=== PATIENT | female | born 1985 | race Caucasian/White ===

== ENCOUNTER 2019-01-26 20:08 | Emergency (ER) | payer MEDICAID ==
[~2019-01-26] VITALS: Ht 165.1 cm; Wt 65.8 kg
[2019-01-26] MEDS ORDERED: EPINEPHrine HCL 1 MG/10 ML SYRG IV ONE (20:15)
[2019-01-26] MEDS ORDERED: SODIUM BICARBONATE 8.4% INJ 50ML SYRINGE IV ONE (20:15)
[2019-01-26] MEDS ORDERED: CALCIUM CHLOR(10%) 100MG/ML 10ML SYRINGE IV ONE ×3 (20:15→20:31)
[2019-01-26] MEDS ORDERED: NOREPINEPHRINE 8 MG/250ML KIT 250 ML IV ONE (20:23)
[2019-01-26] MEDS ORDERED: SODIUM BICARBONATE 8.4% INJ 50ML SYRINGE ONE ×2 (20:30)
[2019-01-26] MEDS ORDERED: NOREPINEPHRINE 8 MG/250ML KIT 250 ML IV SCH (20:34)
[2019-01-26] MEDS ORDERED: SODIUM CHLORIDE 0.9% 1,000 ML IV ONE ×2 (20:45)
[2019-01-26] MEDS ORDERED: SODIUM CHL 3% 500 ML IV ONE (21:00)
[2019-01-26 21:07] VITALS: BP 124/57
== END 2019-01-26 21:59 | disposition short-term general hospital (02) ==
LOC: EDBD 20:08 → ER 20:14
DX: I46.9 Cardiac arrest, cause unspecified (principal); F17.210 Nicotine dependence, cigarettes, uncomplicated; Z87.442 Personal history of urinary calculi
CPT/HCPCS: 92950; 99285; J0171